=== PATIENT | male | born 1950 | race Caucasian/White ===

== ENCOUNTER 2017-11-03 10:28 | Outpatient (CLI) | payer OTHER ==
[~2017-11-03 10:28] MED LIST: GABAPENTIN600 MG PO; TIZANIDINE HCL4 MG PO
== END 2017-11-03 10:34 | disposition home or self-care (01) ==
LOC: MRI 10:28
DX: M47.892 Other spondylosis, cervical region (principal); M54.2 Cervicalgia
CPT/HCPCS: 72141

== ENCOUNTER 2020-01-05 08:03 | Outpatient (CLI) | payer OTHER | END 2020-01-05 08:04 | disposition home or self-care (01) | LOC: MRI 08:03 | PROVIDERS: ATTEND Orthopaedic Surgery | DX: M19.011 Primary osteoarthritis, right shoulder (principal) | CPT/HCPCS: 73218 ==

== ENCOUNTER 2020-10-09 11:27 | Outpatient (CLI) | payer OTHER | END 2020-10-09 11:32 | disposition home or self-care (01) | LOC: LAB 11:27 | PROVIDERS: ATTEND Radiology Diagnostic Radiology | DX: N20.0 Calculus of kidney (principal) ==

== ENCOUNTER 2020-10-21 09:06 | Outpatient (CLI) | payer OTHER | END 2020-10-21 09:12 | disposition home or self-care (01) | LOC: TOM 09:06 | PROVIDERS: ATTEND Specialist | DX: I65.21 Occlusion and stenosis of right carotid artery (principal) | CPT/HCPCS: 70498; Q9965 ==

== ENCOUNTER 2022-05-20 10:22 | Outpatient (CLI) | payer OTHER | END 2022-05-20 10:37 | disposition home or self-care (01) | LOC: MRI 10:22 | DX: M19.011 Primary osteoarthritis, right shoulder (principal); M19.012 Primary osteoarthritis, left shoulder | CPT/HCPCS: 73218 ==

== ENCOUNTER 2022-10-20 15:05 | Outpatient (CLI) | payer OTHER | END 2022-10-20 15:20 | disposition home or self-care (01) | LOC: MRI 15:05 | PROVIDERS: ATTEND Physical Medicine & Rehabilitation | DX: M54.50 Low back pain, unspecified (principal); M54.16 Radiculopathy, lumbar region | CPT/HCPCS: 72148 ==